=== PATIENT | female | born 1995 | race African-American/Black ===

== ENCOUNTER 2017-11-21 09:40 | Emergency (ER) | payer MEDICAID ==
[2017-11-21 11:08] LABS: BASOPHILS 0.2 % (0-2); EOSINOPHILS 0.1 % (0-7); HEMATOCRIT 39.3 % (36.0-48.0); HEMOGLOBIN 13.2 g/dL (12-16); IMMATURE GRANULOCYTES 0.2 % (0-5); LYMPHOCYTES 9.8 % (15-50); MCH 30.2 pg (26.0-34.0); MCHC 33.6 g/dL (31.0-37.0); MCV 89.9 fL (80.0-100.0); MEAN PLATELET VOLUME 8.3 fL (7.4-10.4); MONOCYTES 3.7 % (2-11); PLATELET COUNT 363 10x3/uL (130-400); RBC 4.37 10x6/uL (4.00-5.40); RDW 12.9 % (11.5-14.5); WBC 16.7 10x3/uL (4.8-10.8)
[2017-11-21 11:18] LABS: UDS - AMPHET NEGATIVE QUAL (NEGATIVE); UDS - BARB NEGATIVE QUAL (NEGATIVE); UDS - BENZO NEGATIVE QUAL (NEGATIVE); UDS - COCAINE NEGATIVE QUAL (NEGATIVE); UDS - OPIATE NEGATIVE QUAL (NEGATIVE); UDS - PCP NEGATIVE QUAL (NEGATIVE); UDS - THC NEGATIVE QUAL (NEGATIVE)
[2017-11-21 11:31] LABS: ALBUMIN 4.2 g/dL (3.4-5.0); ALKALINE PHOSPHATASE 78 U/L (46-116); ALT (SGPT) 11 U/L (10-68); BILIRUBIN - TOTAL 0.56 mg/dL (0.2-1.3); CALC OSMOLALITY 274 mosm/kg (275-300); CALCIUM 9.5 mg/dL (8.5-10.1); CARBON DIOXIDE 24.7 mmol/L (21.0-32.0); CHLORIDE - SERUM 100 mmol/L (98-107); CREATININE - SERUM 0.8 mg/dL (0.6-1.3); GLUCOSE 96 mg/dL (74-106); POTASSIUM - SERUM 3.7 mmol/L (3.5-5.1); SODIUM 138 mmol/L (136-145); UREA NITROGEN 11 mg/dL (7-18); eGFR NON AFRICAN AMERICAN > 90 mL/min (90-120)
[2017-11-21 11:40] LABS: T4 THYROXIN - FREE 1.32 ng/dL (0.76-1.46); THYROID STIMULATING HORMONE 1.55 uIU/mL (0.36-3.74)
[2017-11-21 12:08] LABS: APPEARANCE CLEAR (CLEAR); COLOR YELLOW (YELLOW); SPECIFIC GRAVITY 1.025 (1.005-1.020)
[2017-11-21 12:09] LABS: BILIRUBIN NEGATIVE (NEGATIVE); GLUCOSE NEGATIVE (NEGATIVE); KETONE LARGE mg/dL (NEGATIVE); NITRITE NEGATIVE (NEGATIVE); PROTEIN TRACE mg/dL (NEGATIVE); UROBILINOGEN NORMAL (NORMAL)
[2017-11-21 12:13] LABS: WHITE CELLS - URINE 0-5 /hpf (0-5)
[2017-11-21 12:14] LABS: BACTERIA MANY /hpf (NONE SEEN); EPITHELIAL CELLS 0-5 /hpf (0-5); MUCUS <1+ /lpf (NONE SEEN); RED CELLS - URINE RARE /hpf (0-5)
[2017-11-21 12:17] LABS: YEAST RARE /hpf (NONE SEEN)
== END 2017-11-21 14:05 | disposition home or self-care (01) ==
LOC: D.ER 09:40
PROVIDERS: Physician Assistant
DX: R00.0 Tachycardia, unspecified (principal); F43.22 Adjustment disorder with anxiety; R82.4 Acetonuria

== ENCOUNTER 2017-11-22 11:45 | Emergency (ER) | payer MEDICAID | END 2017-11-22 13:38 | disposition home or self-care (01) | LOC: D.ER 11:45 | DX: K52.9 Noninfective gastroenteritis and colitis, unspecified (principal) ==

== ENCOUNTER 2017-12-18 19:45 | Emergency (ER) | payer MEDICAID | END 2017-12-18 21:34 | disposition home or self-care (01) | LOC: D.ER 19:45 | DX: B34.9 Viral infection, unspecified (principal) ==

== ENCOUNTER 2018-04-27 18:38 | Emergency (ER) | payer SELFPAY ==
[~2018-04-27] VITALS: Ht 157.5 cm; Wt 40.9 kg
[2018-04-27 18:49] VITALS: Ht 157.5 cm; Wt 40.9 kg
[2018-04-27] MEDS ORDERED: DIFLUCAN100 MG PO (19:47)
[2018-04-27 19:57] VITALS: BP 112/71
== END 2018-04-27 19:58 | disposition home or self-care (01) ==
LOC: D.ER 18:38
DX: B37.0 Candidal stomatitis (principal); B37.81 Candidal esophagitis